=== PATIENT | female | born 1950 | race Caucasian/White ===

== ENCOUNTER 2018-10-02 08:33 | Outpatient (CLI) | payer MEDICARE, OTHER ==
--- NOTE | 2018-10-02 09:35 | BD ---
DEXA BONE DENSITY STUDY: Date: 10/02/18 HISTORY: Postmenopausal. FINDINGS: Lumbar Spine: BMD (g/cm2) L1 0.904 T-Score: -0.8 L2 0.838 T-Score: -1.7 L3 0.832 T-Score: -2.3 L4 0.947 T-Score: -1.0 Total 0.881 T-Score: -1.5 Left Femoral Neck: 0.643 T-Score: -1.9 Total Femur: 0.835 T-Score: -0.9 IMPRESSION: Osteopenia of the lumbar spine and left femoral neck. POS: TPC
== END 2018-10-02 08:34 | disposition home or self-care (01) ==
LOC: BICMAMMO 08:33
PROVIDERS: ATTEND Internal Medicine Rheumatology
DX: Z13.820 Encounter for screening for osteoporosis (principal); M19.90 Unspecified osteoarthritis, unspecified site; M85.89 Other specified disorders of bone density and structure, multiple sites
CPT/HCPCS: 77080

== ENCOUNTER 2021-04-22 08:14 | Outpatient (CLI) | payer MEDICARE, OTHER | END 2021-04-22 08:15 | disposition home or self-care (01) | LOC: BICMAMMO 08:14 | PROVIDERS: ATTEND Internal Medicine Rheumatology | DX: M81.0 Age-related osteoporosis without current pathological fracture (principal); M85.89 Other specified disorders of bone density and structure, multiple sites | CPT/HCPCS: 77080 ==